=== PATIENT | female | born 1975 | race Caucasian/White ===

== ENCOUNTER 2020-03-25 10:20 | Emergency (ER) | payer OTHER ==
[2020-03-25 10:27] VITALS: BP 131/84; PULSE 73; TEMP 98.3; BMI 24.2
[2020-03-25] MEDS ORDERED: MECLIZINE HCL 25 MG TABLET (FP) PO ONE (10:59)
[2020-03-25] MEDS ORDERED: MECLIZINE HCL 25 MG TABLET (FP) ONE (11:00)
--- NOTE | 2020-03-25 11:48 | PDOC ---
History of Present Illness - General Chief Complaint: Lightheaded Stated Complaint: DIZZY Time Seen by Provider: 03/25/20 10:37 History Source: Patient Exam Limitations: No Limitations - History of Present Illness Initial Comments: 03/25/20 11:42 45 yo F denies PMH p/w episode of waxing and waning dizziness this morning, lasting ~30 minutes, resolved prior to arrival. Describes dizziness as both room spinning and feeling lightheaded. DEnies LOC. Reports nausea at the time. Had similar symptoms yesterday, went to [facility], EKG and blood work unremarkable (pt brought records with her). States she may have been somewhat dehydrated over the past few days since she was outside playing tennis and didn't drink as much. Denies CP or SOB. Denies headache. Denies trauma. Not on any hormones. No infectious complaints. Denies changes in vision. Reports eating breakfast this morning prior to the onset of symptoms. Denies any sexual activity in the past 3 months. States she still gets her period regularly. Denies FH of early cardiac disease or sudden cardiac . Towards end of interview and exam patient reported her dizziness was returning but less severe than this morning. Past History - Medical History Allergies/Adverse Reactions: Allergies Allergy/AdvReac Type Severity Reaction Status Date / Time No Known Allergies Allergy Verified 03/25/20 10:22 Home Medications: Ambulatory Orders Meclizine HCl 25 mg PO TID PRN #10 tablet 03/25/20 COPD: No - Psycho-Social/Smoking History Smoking History: Never smoked Have you smoked in the past 12 months: No Information on smoking cessation initiated: No - Substance Abuse Hx (Audit-C & DAST Scrn) How often the patient has a drink containing alcohol: Never Score: In Men: 4 or > Positive; In Women: 3 or > Positive: 0 Screen Result (Pos requires Nsg. Audit-10AR): Negative In the last yr the pt used illegal drug/Rx for NonMed reason: No Score: Yes response is considered Positive: 0 Screen Result (Positive result requires Nsg. DAST-10): Negative Review of Systems - Review of Systems Able to Perform ROS?: Yes Comments:: 03/25/20 11:46 GENERAL/CONSTITUTIONAL: No fever or chills. No weakness. HEAD, EYES, EARS, NOSE AND THROAT: No change in vision. No ear pain or discharge. No sore throat. CARDIOVASCULAR: No chest pain or shortness of breath. RESPIRATORY: No cough, wheezing, or hemoptysis. GASTROINTESTINAL: + nausea, No vomiting, diarrhea or constipation. GENITOURINARY: No dysuria, frequency, or change in urination. MUSCULOSKELETAL: No joint or muscle swelling or pain. No neck or back pain. SKIN: No rash. NEUROLOGIC: No headache, loss of consciousness, or change in strength/sensation. +dizziness ENDOCRINE: No increased thirst. No abnormal weight change. HEMATOLOGIC/LYMPHATIC: No anemia, easy bleeding, or history of blood clots. ALLERGIC/IMMUNOLOGIC: No hives or skin allergy. *Physical Exam - Vital Signs Last Vital Signs Temp Pulse Resp BP Pulse Ox 98.3 F 73 20 131/84 98 03/25/20 10:21 03/25/20 10:21 03/25/20 10:21 03/25/20 10:21 03/25/20 10:21 - Physical Exam 03/25/20 11:47 GENERAL: Well appearing, in no acute distress HEAD: NCAT EYES: EOMI, sclera anicteric, conjunctiva clear, no nystagmus ENT: Auricles normal inspection, nares patent, oropharynx clear without exudates. MMM NECK: Normal ROM, supple LUNGS: CTAB. Good air entry. No wheezes, No Rhonchi and no crackles HEART: RRR, + s1 s2, no murmurs, rubs or gallops ABDOMEN: Soft, nontender, normoactive bowel sounds. No guarding, no rebound. No masses EXTREMITIES: Warm and well perfused. No LE edema. FROM. No clubbing or cyanosis. No cords, erythema, or tenderness NEUROLOGICAL: Aox3, Speech fluent, face symmetric, tongue/uvula midline. Sensation grossly intact to light touch. Ambulatory with steady gait. Strength intact. Finger to nose intact and symmetric b/l. No focal deficits. SKIN: Warm, dry, normal turgor, no rashes or lesions noted. ED Treatment Course - Medications Given in the ED: ED Medications Discontinued Medications Generic Name Dose Route Start Last Admin Trade Name Freq PRN Reason Stop Dose Admin Meclizine HCl 25 mg 03/25/20 10:59 03/25/20 11:03 Antivert - PO 03/25/20 11:00 25 mg ONCE ONE Administration Medical Decision Making - Medical Decision Making 03/25/20 11:48 45 yo F with dizziness, seen for same yesterday with normal labs and EKG (documents provided by patient and reviewed by me), PERC negative and low suspicion for PE, possible although patient denies recent sexual activity and LMP was ~3 weeks ago. Possible perimenopausal/hot flashes vs. vertigo vs. mild dehydration although patient with normal BP and pulse and no clinical signs of dehydration. Doubt ACS and workup yesterday negative. Plan: -meclizine -offered to repeat basic blood work today however patient declined as she has her results from yesterday -reassess This clinical encounter is taking place during a federal and state health care emergency attributable to the novel Nelson Virus pandemic. The [place] of the Department of Health and Human Services has declared, pursuant to the Public Health Service Act 319F-3 (42 U.S.C. 247d-6d), that a covered persons activities related to medical countermeasures against COVID-19 will be immune from liability under Federal and State law. 03/25/20 12:33 Pt with improvement in symtpoms. Will d/c with return precautions, rx for m eclizine sent, patient to f/u with her PMD. Discharge - Discharge Information Problems reviewed: Yes Clinical Impression/Diagnosis: Dizziness Condition: Improved Disposition: HOME - Admission No - Additional Discharge Information Prescriptions: Meclizine HCl 25 mg PO TID PRN #10 tablet PRN Reason: Vertigo - Follow up/Referral - Patient Discharge Instructions Patient Printed Discharge Instructions: DI for Vertigo Additional Instructions: You were seen for dizziness. A prescription for meclizine has been sent to your pharmacy. You should make sure to drink plenty of fluids to stay well hydrated. You should follow up with your PMD. Return to the ED for new or worsening symptoms. - Post Discharge Activity
== END 2020-03-25 12:55 | disposition home or self-care (01) ==
LOC: FER 10:20
DX: R42 Dizziness and giddiness (principal)
CPT/HCPCS: 99284-25

== ENCOUNTER 2020-03-30 16:30 | Emergency (ER) | payer OTHER ==
--- NOTE | 2020-03-30 16:46 | TELE ---
HPI Do you have fever,cough or shortness of breath?: No - General Reason For Visit: COVID19 TESTING History Source: Patient ([facility] and Weakness x 1 week ) Past History - Travel History Traveled outside of the country in the last 30 days: No Close contact w/someone who was outside of country & ill: No - Medical History Allergies/Adverse Reactions: Allergies Allergy/AdvReac Type Severity Reaction Status Date / Time No Known Allergies Allergy Verified 03/25/20 10:22 Home Medications: Ambulatory Orders Meclizine HCl 25 mg PO TID PRN #10 tablet 03/25/20 Anemia: No Asthma: No Cancer: No Cardiac Disorders: No Hx Myocardial Infarction: No CVA: No COPD: No CHF: No - Psycho-Social/Smoking History Smoking History: Never smoked Have you smoked in the past 12 months: No *Physical Exam - Physical Exam 03/30/20 16:45 Patient was examined via telehealth in no acute distress - Medical Decision Making 03/30/20 16:45 Concern for COVID orders placed Discharge Diagnosis at time of Disposition: Suspected COVID-19 virus infection - Referrals Follow-up Referral(s): Kayla Sy MD [Primary Care Provider] - - Patient Instructions - Discharge Disposition: HOME Condition at time of Disposition: Stable
== END 2020-03-30 16:46 | disposition home or self-care (01) ==
LOC: JVIRT 16:30
DX: Z11.59 Encounter for screening for other viral diseases (principal)
CPT/HCPCS: Q3014-GT; U0003

== ENCOUNTER 2020-09-10 14:33 | Emergency (ER) | payer OTHER | END 2020-09-10 14:38 | disposition home or self-care (01) | LOC: JVIRT 14:33 | DX: U07.1 COVID-19 (principal) | CPT/HCPCS: C9803; Q3014-GT; U0003 ==

== ENCOUNTER 2022-05-03 04:12 | Day surgery (SDC) | payer OTHER ==
[2022-04-28 10:41] VITALS: BMI 24.2
[2022-05-03] MEDS ORDERED: oxyCODONE HCL 5 MG TABLET PO PRN ×3 (11:44→13:06)
[2022-05-03] MEDS ORDERED: IBUPROFEN 600 MG TABLET (FP) PO PRN (11:44)
[2022-05-03] MEDS ORDERED: IBUPROFEN 800 MG/8 ML IJ IVPB PRN (11:44)
[2022-05-03] MEDS ORDERED: ONDANSETRON 4 MG/2 ML VIAL IVPUSH PRN (11:44)
[2022-05-03] MEDS ORDERED: ELECTROLYTE-148 SOLN 1,000 ML IV SCH (11:45)
[2022-05-03] MEDS ORDERED: ONDANSETRON 4 MG/2 ML VIAL ONE (12:07)
[2022-05-03] MEDS ORDERED: DEXAMETHASONE SOD PHOSPHATE 4 MG/1 ML VIAL ONE (12:07)
[2022-05-03] MEDS ORDERED: PROPOFOL 20 ML ONE (12:08)
[2022-05-03] MEDS ORDERED: MIDAZOLAM HCL 2 MG/2 ML SINGLE DOSE VIAL ONE (12:08)
[2022-05-03] MEDS ORDERED: SEVOFLURANE 250 ML BTL ONE (12:15)
[2022-05-03] MEDS ORDERED: SUCCINYLCHOLINE CHLORIDE 200 MG/10 ML SYRINGE ONE (12:17)
[2022-05-03] MEDS ORDERED: ePHEDrine SULFATE 50 MG/1 ML AMPULE ONE (12:31)
[2022-05-03] MEDS ORDERED: ACETAMINOPHEN 325 MG TABLET (FP) PO PRN (13:06)
[2022-05-03] MEDS ORDERED: LACTATED RINGERS SOLUTION 1,000 ML IV SCH (13:15)
[2022-05-03 14:20] VITALS: RESP 18; TEMP 97.8
[2022-05-03 15:16] VITALS: BP 120/71; PULSE 68
== END 2022-05-03 15:10 | disposition home or self-care (01) ==
LOC: JASU-SURG 04:12
PROVIDERS: ATTEND Obstetrics & Gynecology
PROC: 0UB98ZX Excision of Uterus, Via Natural or Artificial Opening Endoscopic, Diagnostic (ICD-10-PCS; principal; 2022-05-03 12:00)
PROC: 0UDB7ZX Extraction of Endometrium, Via Natural or Artificial Opening, Diagnostic (ICD-10-PCS; 2022-05-03 12:00)
DX: N92.1 Excessive and frequent menstruation with irregular cycle (principal); N84.0 Polyp of corpus uteri
CPT/HCPCS: 81025; 88305-TC; 94760